=== PATIENT | male | born 1985 | race Caucasian/White ===

== ENCOUNTER 2022-01-07 00:11 | Observation (INO) | payer OTHER, SELFPAY ==
[2022-01-07 00:55] LABS: #Basophils 0.1 10x3/uL (0.0-0.2); #Eosinphils 0.3 10x3/uL (0.0-0.5); #Monocytes 0.9 10x3/uL (0.0-1.1); #Neutrophils 3.7 10x3/uL (1.5-8.4); %Basophils 1.2 % (0.0-2.0); %Eosinophils 3.2 % (0.0-6.0); %Lymphocytes 46.1 % (18.0-47.0); %Monocytes 9.8 % (0.0-10.0); %Neutrophils 39.3 % (40.0-75.0); Hemoglobin 19.1 g/dL (13.5-17.5); Mean Corpuscular HGB CONC 34.2 g/dL (32.0-36.0); Mean Corpuscular Hemoglobin 33.3 pg (27.0-33.0); Mean Corpuscular Volume 97.6 fl (81.2-95.1); Mean Platelet Volume 9.3 fl (7.4-10.4); Platelet Count 150 10x3/uL (150-450); RBC Distribution Width 13.3 % (11.5-14.5); Red Blood Cell (RBC) Count 5.73 10x6/uL (4.32-5.72); White Blood Cell (WBC) Count 9.4 10x3/uL (3.5-10.5)
[2022-01-07 01:09] LABS: ALT (SGPT) 94 U/L (8-55); AST (SGOT) 145 U/L (5-34); Albumin 4.4 g/dL (3.5-5.0); Alkaline Phosphatase 119 U/L (40-110); Anion Gap 17 mmol/L (10-20); BUN (Urea Nitrogen) Less than 4 mg/dL (8.9-20.6); Bilirubin, Total 0.9 mg/dL (0.2-1.2); Calc. Creatinine Clearance 0 mL/min (70-130); Carbon Dioxide 27 mmol/L (22-29); Chloride 102 mmol/L (98-107); Globulin 3.8 g/dL (2.4-3.5); Glucose 95 mg/dL (70-105); Lipase 22 U/L (8-78); Potassium 3.2 mmol/L (3.5-5.1); Protein, Total 8.2 g/dL (6.0-8.3); Sodium 143 mmol/L (136-145)
[2022-01-07 01:25] LABS: Amphetamine Not Detected (NotDetected); Barbiturates Screen Not Detected (NotDetected); Benzodiazepine Screen Not Detected (NotDetected); Cocaine Metabolite Screen Not Detected (NotDetected); Methadone Not Detected (NotDetected); Methamphetamine Not Detected (NotDetected); Opiate Screen Not Detected (NotDetected); Oxycodone Screen Not Detected (NotDetected); Phencyclidine (PCP) Not Detected (NotDetected); THC/Cannabinoid Screen Not Detected (NotDetected); Tricyclic Screen Not Detected (NotDetected)
[2022-01-07] MEDS ORDERED: Nicotine 14 MG PATCH ONE (02:18)
[2022-01-07] MEDS ORDERED: Nitroglycerin 0.4 MG TAB (25 Tab Bottle) SL PRN (03:16)
[2022-01-07 03:32] VITALS: BMI 24.5
[2022-01-07] MEDS ORDERED: Aspirin Chewable 81 MG TAB PO SCH ×2 (03:45→09:00)
[2022-01-07] MEDS: Nitroglycerin 2% Ointment 1 INCH/1 GM Packet TOP SCH ×2 (03:53→11:36)
[2022-01-07] MEDS ORDERED: Potassium Chloride 20 MEQ TAB PO SCH (04:00)
[2022-01-07] MEDS ORDERED: FLU VACC QS2021-22(6MOS UP)/PF 60 MCG/0.5 ML SYRINGE IM ONE (04:30)
[2022-01-07 05:36] LABS: Cardiac Risk 6.3 (Less than 4.5); Cholesterol 266 mg/dl (< 200 Desired); HDL Cholesterol 42 mg/dL (>60 Neg Risk); LDL Cholesterol, Calculated 155 mg/dL; Magnesium 1.7 mg/dL (1.6-2.6); Triglycerides 344 mg/dL (Less than 150)
[2022-01-07 05:39] LABS: Troponin I Less than 0.010 ng/mL (< 0.028)
[2022-01-07 07:30] LABS: Hemoglobin 17.6 g/dL (13.5-17.5)
[2022-01-07 07:41] LABS: Anion Gap 21 mmol/L (10-20); BUN (Urea Nitrogen) 4 mg/dL (8.9-20.6); Calc. Creatinine Clearance 172 mL/min (70-130); Calcium 8.9 mg/dL (7.8-10.44); Carbon Dioxide 21 mmol/L (22-29); Chloride 103 mmol/L (98-107); Glucose 93 mg/dL (70-105); Sodium 141 mmol/L (136-145)
[2022-01-07 07:44] LABS: Troponin I Less than 0.010 ng/mL (< 0.028)
[2022-01-07 08:12] LABS: Potassium 3.9 mmol/L (3.5-5.1)
[2022-01-07] MEDS ORDERED: Enoxaparin Sodium 40 MG/0.4 ML SYRINGE SC SCH (09:00)
[2022-01-07] MEDS ORDERED: Lisinopril 5 MG TAB PO SCH (09:00)
[2022-01-07] MEDS ORDERED: Metoprolol Tartrate 25 MG TAB PO SCH (09:00)
[2022-01-07 11:50] VITALS: BP 132/77; TEMP 99.7
[2022-01-07] MEDS ORDERED: Atorvastatin Calcium 40 MG TAB PO SCH (21:00)
== END 2022-01-07 17:32 | disposition home or self-care (01) ==
LOC: CSHERS 00:11 → CSHTELE 03:15
PROVIDERS: ADMIT Family Medicine; ATTEND Hospitalist
DX: R07.9 Chest pain, unspecified (principal); F41.9 Anxiety disorder, unspecified; E78.5 Hyperlipidemia, unspecified; F17.210 Nicotine dependence, cigarettes, uncomplicated; D75.1 Secondary polycythemia; Z86.19 Personal history of other infectious and parasitic diseases; E87.6 Hypokalemia; R74.8 Abnormal levels of other serum enzymes
CPT/HCPCS: 36415; 71045; 71275; 80053; 80061; 80306; 83690; 83735; 83880; 84484; 85025; 93005; 93010; 93306; 96372; G0378; J1650